=== PATIENT | male | born 1990 | race African-American/Black ===

== ENCOUNTER 2016-12-20 16:03 | Inpatient (IN) | payer OTHER ==
[~2016-12-20] VITALS: Ht 182.9 cm; Wt 142.5 kg
[2016-12-20 16:06] VITALS: BP 132/83; PULSE 103; RESP 20; O2SAT 98
--- NOTE | 2016-12-20 16:18 | ED.REPORT ---
HPI-General Illness Date of Service Dec 20, 2016 ED Provider: Azar Fajardo MD Pt is a 26 y/o previously healthy male presenting to the ED from Urgent Care with concern for new onset diabetes. Pt c/o polydipsia, polyuria, heat intolerance, generalized abdominal pain all for 4-5 days. At Urgent Care, his blood sugar was above their glucometer's upper limit. He describes his abdominal pain as a bloating sensation. He denies fever, chills, N/V/D, constipation, confusion, focal numbness or weakness, CP, SOB. He has no personal or family history of diabetes and he is not taking any medications. He is a former smoker. Nursing Notes Stated Complaint: ABDOMINAL PAIN Chief Complaint: General Complaint Nursing Notes Reviewed: Yes Allergies: Coded Allergies: No Known Allergies (Unverified , 12/20/16) General Time Seen by MD: 16:16 Chief Complaint Other (concern for new onset diabetes) Hx Obtained From: Patient Arrived By: Walk-in Sudden in Onset?: No Onset Occurred: 4 days ago Symptom Duration: Since onset Location: : Abdomen Quality: Fullness Severity: Current: Mild Severity: Maximum: Mild Recent Healthcare: No recent doctor visit, No recent hospitalization Similar Sx Previous: No Past Medical History Past Medical History Denies Past Surgical History Denies Smoking History Former Smoker, Never Smoker Social History Alcohol Use: Denies alcohol use Drug Use: Denies drug use Ambulatory Status Independent Review of Systems Full Review of Systems Constitutional: Denies: Chills, Fever Respiratory: Denies: Non-productive cough, Shortness of breath Cardiovascular: Denies: Chest pain GI: Reports: Abdominal pain, Denies: Diarrhea, Nausea, Vomiting Endocrine: Reports: Heat intolerance, Polydipsia, Polyuria Neurologic: Denies: Focal weakness, Numbness Complete sys rev & neg: except as marked. Physical Exam Vital Signs Vital Signs Date Time Temp Pulse Resp B/P Pulse Ox O2 Delivery O2 Flow Rate FiO2 12/20/16 16:06 36.5 103 20 132/83 98 Room Air Initial VS: Reviewed Head / Eyes: Atraumatic, Normocephalic, PERRL ENT: Mucous membranes moist, Conjunctiva normal, No scleral icterus Neck: Supple, Full range of motion Respiratory: Breath sounds normal, Clear to auscultation, No respiratory distress Cardiovascular: Regular rate & rhythm, Heart sounds normal, Intact distal pulses Abdomen / GI: Soft, Non-tender, No guarding, No rebound, No distention Extremities: Vascular intact, Neuro intact, No swelling, No tenderness Skin: Warm, Dry, No cyanosis Neurologic: Alert, Oriented, Nonfocal Psychiatric: Mood/affect normal, Behavior normal, Normal thought content General/Constitutional: Awake, Alert, No acute distress, Cooperative, Not toxic appearing Interpretation & Diagnostics Lab Results Interpretation Result Diagram: 12/20/16 1550 12/20/16 1550 Test 12/20/16 15:50 12/20/16 16:45 White Blood Count 8.1th/mm3 (3.8-10.1) Red Blood Count 5.82mil/mm3 (4.40-5.80) Hemoglobin 15.2g/dL (13.8-17.2) Hematocrit 42.6% (41.0-50.0) Mean Corpuscular Volume 73.2fL (81-100) Mean Corpuscular Hemoglobin 26.1pg (27.0-35.0) Mean Corpuscular Hemoglobin Concent 35.7% (32.0-37.0) Red Cell Distribution Width 11.8% (12.3-15.4) Platelet Count 369bil/L (150-400) Neutrophils (%) (Auto) 69.3% (40-74) Lymphocytes (%) (Auto) 21.4% (14-46) Monocytes (%) (Auto) 6.9% (4-12) Eosinophils (%) (Auto) 2.2% (0-5) Basophils (%) (Auto) 0.1% (0-3) Urine Osmolality 598mOs/kH2O (250-1200) Sodium Level 136mEq/L (134-144) Potassium Level 5.0mEq/L (3.5-5.2) Chloride Level 92mEq/L (97-108) Carbon Dioxide Level 26mmol/L (18-29) Blood Urea Nitrogen 18mg/dL (6-20) Creatinine 1.06mg/dL (0.76-1.27) Estimat Glomerular Filtration Rate 91mL/min (>59) Glucose Level 718mg/dL (60-99) Osmolality 330 (275-300) Lactic Acid Level 3.4mmol/L (0.4-2.0) Calcium Level 9.8mg/dL (8.5-10.1) Magnesium Level 2.6mg/dL (1.6-2.6) Total Bilirubin 0.9mg/dL (0.0-1.2) Aspartate Amino Transf (AST/SGOT) 12U/L (0-50) Alanine Aminotransferase (ALT/SGPT) 13U/L (0-44) Alkaline Phosphatase 172U/L (25-150) Total Protein 8.0g/dL (6.4-8.4) Albumin 4.9g/dL (3.4-5.0) Lipase 25U/L (13-60) Ketones Negative (Negative) Urine Color Straw (YELLOW) Urine Appearance Clear (CLEAR,HAZY) Urine pH 6.0 (5.0-8.0) Urine Specific [place] 1.010 (1.003-1.035) Urine Protein Negativemg/dL (NEG,TRACE) Urine Glucose (UA) 1000mg/dL (NEGATIVE) Urine Ketones Negativemg/dL (NEGATIVE) Urine Occult Blood Trace (NEGATIVE) Urine Nitrite Negative (NEGATIVE) Urine Bilirubin Negative (NEGATIVE) Urine Urobilinogen Normalmg/dL (NORMAL) Urine Leukocyte Esterase Negative (NEGATIVE) Urine RBC 0-2/hpf (0-2) Urine WBC 0-5/hpf (0-5) Urine Epithelial Cells None/hpf (NONE-MOD) Urine Crystals None seen (NONE SEEN) Urine Bacteria Few/hpf (NONE-FEW) Urine Hyaline Casts None/lpf (NONE) Urine Granular Casts None seen (NONE SEEN) Urine Waxy Casts None seen (NONE SEEN) Urine Red Blood Cell Casts None seen (NONE SEEN) Urine White Blood Cell Casts None seen (NONE SEEN) Urine Mucus None seen (None Seen) Urine Trichomonas None seen (NONE SEEN) Urine Yeast None (NONE SEEN) Urinalysis Comment None Urine Culture Reflexed Not indicated Re-Eval/Medical Decision Time of Eval: 17:08 Re-Evaluation/Progress Note: Pt rechecked. Informed pt of need for admission for educational purposes and normalization of labs. Pt understands and agrees with plan for admission. All questions addressed. Consultation : Consulted With: Hospitalist Call Returned at: 17:30 Starter Mechanic: Will see patient, Agrees with eval, Agrees with plan, Accepts admit Counseled Regarding: Diagnosis, Lab results, Need for admission Discharge & Departure Primary Impression: New onset type 1 diabetes mellitus, uncontrolled Additional Impression: Metabolic acidosis Ruled Out: DKA (diabetic ketoacidosis) Disposition: ADMITTED TO HOSPITAL Discharge Condition All VS Reviewed: Yes Condition: Stable Referrals: NOPCP (PCP) Scribe Attestation Portions of this note were transcribed by Young Lawrence. I, Dr. Fajardo personally performed the history, physical exam and medical decision-making; I reviewed and confirmed the accuracy of the information in the transcribed note. Signed by Karen Braga, 12/20/16 - 1645 Azar Fajardo MD Dec 20, 2016 16:17 YOUNG LAWRENCE Dec 20, 2016 16:22
[2016-12-20] MEDS ORDERED: 0.9% Sodium Chloride 1,000 ML IV ONE ×2 (16:30)
[2016-12-20] MEDS ORDERED: Ondansetron 2 mg/mL 2 mL Inj IVPUSH PRN ×2 (16:30→18:00)
[2016-12-20 16:42] LABS: BASOPHILS % (AUTO) 0.1 % (0-3); EOSINOPHILS % (AUTO) 2.2 % (0-5); MONOCYTES % (AUTO) 6.9 % (4-12); Mean Corpuscular Hemoglobin 26.1 pg (27.0-35.0); Mean Corpuscular Volume 73.2 fL (81-100); NEUTROPHILS % (AUTO) 69.3 % (40-74); Platelet Count 369 bil/L (150-400)
[2016-12-20 16:50] LABS: Lipase 25 U/L (13-60); Magnesium 2.6 mg/dL (1.6-2.6)
[2016-12-20 16:57] LABS: APPEARANCE,URINE CLEAR (CLEAR,HAZY); COLOR,URINE STRAW (YELLOW)
[2016-12-20 16:58] LABS: OCCULT BLOOD,URINE TRACE (NEGATIVE); UROBILINOGEN,URINE NORMAL (NORMAL)
[2016-12-20] MEDS ORDERED: Insulin Human REGular 100 Units/100 mL NS IV SCH ×2 (17:25)
[2016-12-20 17:37] LABS: OSMOLALITY, URINE 598 mOs/kH2O (250-1200)
[2016-12-20 17:59] VITALS: BP 143/85; PULSE 83; RESP 15; O2SAT 98
[2016-12-20] MEDS ORDERED: Alum-Mag Hydrox-Simeth 30 mL Suspension PO PRN (18:00)
[2016-12-20 18:57] VITALS: BP 130/80; PULSE 76; RESP 20; O2SAT 99
[2016-12-20] MEDS ORDERED: Polyethylene Glycol (PEG) 17 Gm Powder PO PRN (19:25)
[2016-12-20] MEDS ORDERED: Insulin Human REGular Inj 100 UNIT in 0.9% Sodium Chloride-Pha MIX 100 ML IV SCH (19:29)
[2016-12-20] MEDS: 0.9% Sodium Chloride 1,000 ML IV SCH (21:22)
--- NOTE | 2016-12-20 22:37 | PCM.HPMED ---
Subjective Date of Service Dec 20, 2016 Primary Provider: Admitting Physician: Adiel Sotelo MD Primary Care Physician: Kosta Madrigal MD Attending Physician: Adiel Sotelo MD Chief Complaint: increased thirst and urination History of Present Illness: Patient is a 26 year old male with no pmh that is presenting with a one week history of increased thirst and increased urination. Patient had been in his usual state of health when he gradually started developing increased thirst. Patient attempted to quench his thirst with everything from yaquelin aid, gingerale , and other soft drinks. Patient continued to have increased thirst despite adjusting his diet to less salty items and with increased fluid intake. Patient then started to urinate uncontrollably. Patient stated that the day prior he was urinating every single hour. Patient became worried that something underlying maybe occuring so he decided to come to the ER. Patient is otherwise stable and has no issues at the moment. Review of Systems: Constitutional: Denies: Chills, Fever Respiratory: Denies: Non-productive cough, Shortness of breath Cardiovascular: Denies: Chest pain GI: Reports: Abdominal pain, Denies: Diarrhea, Nausea, Vomiting Endocrine: Reports: Heat intolerance, Polydipsia, Polyuria Neurologic: Denies: Focal weakness, Numbness complete system reviewed all negative except as stated Allergies Coded Allergies: No Known Allergies (Unverified , 12/20/16) Home Medications none PMH none Surgical History none Family History mother with type II diabetes Social History Hx Alcohol Use: No Hx Substance Use: No Smoking Status: Former Smoker, Never Smoker Exam Vital Signs Vital Sign - Last Date Time Temp Pulse Resp B/P Pulse Ox O2 Delivery O2 Flow Rate FiO2 12/20/16 18:57 36.6 76 20 130/80 99 Room Air Exam General/Constitutional: Awake, Alert, No acute distress, Cooperative, Not toxic appearing Head / Eyes: Atraumatic, Normocephalic, PERRL ENT: Mucous membranes moist, Conjunctiva normal, No scleral icterus Neck: Supple, Full range of motion Respiratory: Breath sounds normal, Clear to auscultation, No respiratory distress Cardiovascular: Regular rate & rhythm, Heart sounds normal, Intact distal pulses Abdomen / GI: Soft, Non-tender, No guarding, No rebound, No distention Extremities: Vascular intact, Neuro intact, No swelling, No tenderness Skin: Warm, Dry, No cyanosis Neurologic: Alert, Oriented, Nonfocal Psychiatric: Mood/affect normal, Behavior normal, Normal thought content Lab and Diagnostics Result Diagram: 12/20/16 1550 12/20/16 1550 Assessment & Plan Patient is a 26 year old male with no significant past medical history that is presenting with a few week history of increased thirst and urination. Patient upon arrival was seen to be hyperglycemic. Newly found Diabetes Mellitus Type II - Pt is seen to have a diagnosis of Diabetes Mellitus type II - Pt not seen to be in DKA however patient is in hyperosmolar hyperglycemic state - will start aggressive IV hydration and start non DKA insulin drip protocol - will monitor blood sugars hourly as per protocol - most recent blood sugar seen to be 283 - will continue with insulin drip and keep pt npo until the am - pt expressed interest in taking po medication - will add on sliding scale coverage for the am GI ppx not warranted DVT ppx via enoxaparin Adiel Sotelo MD Dec 20, 2016 19:42
--- NOTE | 2016-12-20 23:34 | ABG ---
DateTimeAnalyzed 23:30:00 -_ pH ____7.438 - 7.350 7.450 pCO2 ___44.2__ -mmHg 35.0 45.0 pO2 ___75.2__ -mmHg 69.0 116 HCO3- ___29.4__ -mmol/L 22.0 26.0 ABE ____4.9__ -mmol/L -2.0 2.0 tHb ___13.8__ -g/dL O2Hb ___93.9__ -% COHb ____0.8__ -% MetHb ____1.1__ -% sO2 ___95.7__ -% 25.0 FIO2 ___21.0__ -% Drawn By AF - Date/Time Notified____ 23:34:00 -_ Notified By AF - Notified Whom ___Dr. Deepak - B 763 -mmHg tO2 ___18.3__ -Vol% Sonido test _Positive -
[2016-12-21] MEDS: 0.9% Sodium Chloride 1,000 ML IV SCH (04:04)
--- NOTE | 2016-12-21 04:06 | NUR ---
Admit: Pt arrived at around 1900 via WC from ED; family at bedside. Pt AOx3, insulin infusing, RA. Diabetic Teaching done, pt receptive. BG at time of departure from ED 468 per ED RN. Admit complete, denies taking any home medication. Pt pleasant and cooperative with care.
--- NOTE | 2016-12-21 05:31 | NUR ---
BG/NOC Note: Pt on insulin drip, this am within goal range. Pt denied pain, chest pain and SOB. Pt slept off/on throughout the night, significant other at bedside. Pleasant and cooperative with care.
[2016-12-21 05:32] VITALS: BP 110/72; PULSE 73; RESP 20; O2SAT 99
[2016-12-21 06:32] LABS: Mean Corpuscular Hemoglobin 35.3 pg (27.0-35.0)
[2016-12-21 06:33] LABS: BASOPHILS % (AUTO) 1 % (0-3); EOSINOPHILS % (AUTO) 2 % (0-5); MONOCYTES % (AUTO) 9 % (4-12); NEUTROPHILS % (AUTO) 53 % (40-74); Platelet Count 250 bil/L (150-400)
[2016-12-21] MEDS ORDERED: Influenza (Adult) Vaccine 0.5 mL Syringe IM ONE (08:30)
[2016-12-21] MEDS ORDERED: Glucose 40% Oral Gel 15 Gm Tube PO PRN ×2 (08:40→09:20)
[2016-12-21] MEDS ORDERED: Insulin LISPRO 300 Unit/3 mL Inj SUBQ SCH ×2 (12:00)
[2016-12-21 13:59] VITALS: BP 122/70; PULSE 70; RESP 20; O2SAT 100
--- NOTE | 2016-12-21 14:30 | PCM.PNMED ---
Subjective Date of Service Dec 21, 2016 Subjective Patient is doing better this morning. He reports his n/v has improved. He is still a bit tired and sleepy. Upon further questioning, patient reports he just moved to [place] last year from [facility]. He denies any other PMH, but reports his mom does have diabetes. He reports he does smoke Marijuana occasionally, but hasn't lately. He reports he did have URI symptoms a few days prior to this episode also. Exam Vital Signs Vital Sign - Last Date Time Temp Pulse Resp B/P Pulse Ox O2 Delivery O2 Flow Rate FiO2 12/21/16 05:32 36.7 73 20 110/72 99 Room Air Intake and Output 12/20/16 12/20/16 12/21/16 Cumulative From/Thru 15:00 23:00 07:00 12/20/16 16:06 - 12/21/16 06:43 Intake Total 2000 ml 1373 ml 3373 ml Balance 2000 ml 1373 ml 3373 ml Intake IV Total 2000 ml 1373 ml 3373 ml Exam General/Constitutional: Awake, Alert, No acute distress, Cooperative, Not toxic appearing Head / Eyes: Atraumatic, Normocephalic, PERRL ENT: Mucous membranes moist, Conjunctiva normal, No scleral icterus Neck: Supple, Full range of motion Respiratory: CTAB no resp distress. Cardiovascular: Regular rate & rhythm, Heart sounds normal, Intact distal pulses Abdomen / GI: Soft, Non-tender, No guarding, No rebound, No distention Extremities: Vascular intact, Neuro intact, No swelling, No tenderness Skin: Warm, Dry, No cyanosis Neurologic: Alert, Oriented, Nonfocal Psychiatric: Mood/affect normal, Behavior normal, Normal thought content IVs and Medications Medications Reviewed: Medications were reviewed in detail Lab and Diagnostics Result Diagram: 12/21/1652612/21/16526 Assessment & Plan Patient is a 26 year old male with no significant past medical history that is presenting with a few week history of increased thirst and urination. Patient admitted for [facility]. Likely Diabetes Mellitus Type II, POA Patient presented in [facility] 2 Liters of NS fluids were given and patient was continued on 150mls/hr of IV NS. He was started on Non-DKA protocol, which was stopped this morning when his sugars were found to be in the 140s. He is switched over to Insulin Correctional Scale and diet was increased as tolerated; IVF also d/c Will initiate Metformin 500mg BID Diabetic consultation ordered Continue to monitor sugars and neuro status Zofran prn n/v Hypertriglyceridemia As demostrated by Trigs of 474 during hospital stay Will encourage diet and exercise Pain Evaluation: Adequate Pain Control VTE Prophylaxis: Sub-Q Enoxaparin Resuscitation Status: CPR: Attempt Resuscitation Time spent 25 minutes Attending Statement I have seen and evaluated patient at bedside in addition to directly supervising care provided by resident physician. I agree with above documentation. Ganesh Henning DO Dec 21, 2016 06:49 Yannick Castaneda DO Dec 21, 2016 14:54
--- NOTE | 2016-12-21 16:26 | NUR ---
Social Work-screening: Data:EMR Reviewed. Pt is a 26 y/o male who was admitted on 12/20/16 for DKA per H&P. Pt's insurance is [employer] and PCP is Kosta Madrigal MD. EMR Reviewed. Pt resides at home where he remains independent with ADLS. Per RN notes, pt has been up independent in his room. No anticipated discharge needs. SW will continue to follow if needs arise. Assessment:Pt who is independent at baseline. Plan:Pt to discharge home when medically stable via POV. No anticipated discharge needs. SW will continue to follow if needs arise. IHSAN Rodriguez
[2016-12-21] MEDS: Insulin LISPRO 300 Unit/3 mL Inj SUBQ SCH ×2 (17:29→20:55)
[2016-12-21 20:56] VITALS: BP 129/81; PULSE 80; RESP 20; O2SAT 98
[2016-12-22 05:36] VITALS: BP 108/68; PULSE 64; RESP 18; O2SAT 96
[2016-12-22] MEDS ORDERED: Insulin LISPRO 300 Unit/3 mL Inj SUBQ ONE (05:55)
[2016-12-22 06:15] LABS: BASOPHILS % (AUTO) 0.2 % (0-3); EOSINOPHILS % (AUTO) 4.4 % (0-5); MONOCYTES % (AUTO) 8.7 % (4-12); Mean Corpuscular Hemoglobin 26.4 pg (27.0-35.0); Mean Corpuscular Volume 76.9 fL (81-100); NEUTROPHILS % (AUTO) 52.5 % (40-74); Platelet Count 254 bil/L (150-400)
[2016-12-22] MEDS: Insulin LISPRO 300 Unit/3 mL Inj SUBQ SCH (08:42)
[2016-12-22] MEDS ORDERED: METF500T PO (09:45)
[2016-12-22] MEDS ORDERED: INSU100I8 SUBQ (09:45)
--- NOTE | 2016-12-22 09:50 | PCM.DIMED ---
Ganesh Henning DO 12/22/16 0950: Discharge Instructions Date of Service Dec 22, 2016 Dates of Hospitalization Dec 20, 2016 at 17:33 Discharge Diagnosis Discharge Diagnosis New onset Type 2 Diabetes Mellitus Hyperosmolar Hyperglycemia State- Resolved Hypertriglyceridemia Medication Instructions You have been started on Metformin and Short acting Insulin during this hospital stay. Please take the Metformin twice a day with a meal. Please check your sugars 3x a day and give yourself the short acting insulin as instructed according to the correctional scale. Diet Diabetic Activity No restrictions Call your provider Fever or Chills, Vomitting Patient Instructions Please continue measuring your blood sugar before you eat or drink in the morning, then at least 2-3x the rest of the day. Keep a snack on hand if your sugars are low (<80) or you feel like you have low sugars. Please continue a good diet and increasing your exercise as instructed. Follow-up plan Follow up with Dr. Hema Henning at 10:45 am on 12/23/2016. Please bring your sugar log and medications. Follow-up Provider: Ganesh Henning DO Follow-up with PCP in: Other (tomorrow) Yannick Castaneda DO 12/23/16 0725: Discharge Instructions Attending's Statement Read and agree Ganesh Henning DO Dec 22, 2016 09:50 Yannick Castaneda DO Dec 23, 2016 07:25
--- NOTE | 2016-12-22 10:39 | NUR ---
Social Work-discharge: Data:EMR Reviewed. Pt is on day 2 of hospitalization for Non-DKA per H&P. Pt is medically stable to discharge today. MD requesting assistance with getting pt follow up appointment in the next couple days. IDRIS met with pt and discussed options. Pt is agreeable for SW to try his old PCP clinic or [facility].SW called clinic where pt's PCP( who is now retired) worked. Clinic states they would not be able to get pt in. IDRIS called [facility] and left message. IDRIS then updated by MD that he scheduled pt at [facility] for tomorrow at 1045. IDRIS updated pt and provided him with appointment time and information about [facility]. Pt agreeable. Pt up independent in his room. No discharge needs identified. All updated and agreeable to plan. Assessment:pt who is independent at baseline. Plan:Pt to discharge home today via POV. PCP appointment scheduled for tomorrow 2/2 at 1045 at the [facility]. No other discharge needs. All updated and agreeable to plan. IHSAN Rodriguez
--- NOTE | 2016-12-22 11:49 | NUR ---
Discharge Nursing Note: Patient was discharged to home at 1125 . Patients IV was removed intact. All of patients discharge information was reviewed with him and his questions were answered to his satisfaction. Printed Information and diabetic teaching was provided for patient before discharge. Patient was escorted to the Hosp lobby by nursing staff member and he was driven to home by his fiance.
--- NOTE | 2016-12-22 14:06 | PCM.DC.MED ---
Discharge Summary Date of Service Dec 22, 2016 Dates of Hospitalization Date of Hospital Admission Dec 20, 2016 at 17:33 Date of Discharge: Dec 22, 2016 Providers: Admitting Physician: Adiel Sotelo MD Primary Care Physician: Kosta Madrigal MD Attending Physician: Adiel Sotelo MD Diagnosis at Time of Discharge Diagnosis at Time of Discharge New onset Type 2 Diabetes Mellitus Hyperosmolar Hyperglycemia State- Resolved Hypertriglyceridemia Brief History Patient is a 26 year old male with no pmh that is presenting with a one week history of increased thirst and increased urination. Patient had been in his usual state of health when he gradually started developing increased thirst. Patient attempted to quench his thirst with everything from yaquelin aid, gingerale , and other soft drinks. Patient continued to have increased thirst despite adjusting his diet to less salty items and with increased fluid intake. Patient then started to urinate uncontrollably. Patient stated that the day prior he was urinating every single hour. Patient became worried that something underlying maybe occurring so he decided to come to the ER. Patient is otherwise stable and has no issues at the moment. Hospital Course Patient is a 26 year old male with no significant past medical history that is presenting with a few week history of increased thirst and urination. Patient admitted for new on set DM2 and HHS. He was treated aggressively with fluids initially, then started on an Insulin drip until his sugars were normalized overnight. He then was changed over to a correctional scale insulin and his PO diet was increased as tolerated. He was also initiated on Metformin. The following day, he was improved, ate well, and had no complaints. He received Diabetic education including dietary consultation here. He was discharged home with Metformin and short acting Insulin for meal time corrections. He was also established with quick follow up at the [facility]. Exam Vital Signs (Last) Date Time Temp Pulse Resp B/P Pulse Ox O2 Delivery O2 Flow Rate FiO2 12/22/16 05:36 36.5 64 18 108/68 96 Room Air Test 12/20/16 15:50 12/20/16 16:45 12/21/16 05:27 12/21/16 08:10 Urine Osmolality 598mOs/kH2O (250-1200) Hemoglobin A1c 9.0% (4.8-5.6) Osmolality 330 (275-300) Magnesium Level 2.6mg/dL (1.6-2.6) Lipase 25U/L (13-60) Ketones Negative (Negative) Urine Color Straw (YELLOW) Urine Appearance Clear (CLEAR,HAZY) Urine pH 6.0 (5.0-8.0) Urine Specific [place] 1.010 (1.003-1.035) Urine Protein Negativemg/dL (NEG,TRACE) Urine Glucose (UA) 1000mg/dL (NEGATIVE) Urine Ketones Negativemg/dL (NEGATIVE) Urine Occult Blood Trace (NEGATIVE) Urine Nitrite Negative (NEGATIVE) Urine Bilirubin Negative (NEGATIVE) Urine Urobilinogen Normalmg/dL (NORMAL) Urine Leukocyte Esterase Negative (NEGATIVE) Urine RBC 0-2/hpf (0-2) Urine WBC 0-5/hpf (0-5) Urine Epithelial Cells None/hpf (NONE-MOD) Urine Crystals None seen (NONE SEEN) Urine Bacteria Few/hpf (NONE-FEW) Urine Hyaline Casts None/lpf (NONE) Urine Granular Casts None seen (NONE SEEN) Urine Waxy Casts None seen (NONE SEEN) Urine Red Blood Cell Casts None seen (NONE SEEN) Urine White Blood Cell Casts None seen (NONE SEEN) Urine Mucus None seen (None Seen) Urine Trichomonas None seen (NONE SEEN) Urine Yeast None (NONE SEEN) Urinalysis Comment None Urine Culture Reflexed Not indicated Band Neutrophils % 2% (1-5) Metamyelocytes % 3% (0-0) Hematology Comments Total Bilirubin 1.0mg/dL (0.0-1.2) Aspartate Amino Transf (AST/SGOT) 25U/L (0-50) Alanine Aminotransferase (ALT/SGPT) 9U/L (0-44) Alkaline Phosphatase 139U/L (25-150) Total Protein 6.9g/dL (6.4-8.4) Albumin 4.0g/dL (3.4-5.0) Triglycerides Level 474mg/dL (0-149) Cholesterol Level 180mg/dL (100-199) LDL Cholesterol, Calculated 53.200mg/dL (0-119) VLDL Cholesterol 94.800mg/dL HDL Cholesterol 32mg/dL (>39) Cholesterol/HDL Ratio 5.63 (0.0-4.4) Lactic Acid Level 1.1mmol/L (0.4-2.0) Test 12/22/16 05:43 White Blood Count 4.7th/mm3 (3.8-10.1) Red Blood Count 4.85mil/mm3 (4.40-5.80) Hemoglobin 12.8g/dL (13.8-17.2) Hematocrit 37.3% (41.0-50.0) Mean Corpuscular Volume 76.9fL (81-100) Mean Corpuscular Hemoglobin 26.4pg (27.0-35.0) Mean Corpuscular Hemoglobin Concent 34.3% (32.0-37.0) Red Cell Distribution Width 11.6% (12.3-15.4) Platelet Count 254bil/L (150-400) Neutrophils (%) (Auto) 52.5% (40-74) Lymphocytes (%) (Auto) 34.2% (14-46) Monocytes (%) (Auto) 8.7% (4-12) Eosinophils (%) (Auto) 4.4% (0-5) Basophils (%) (Auto) 0.2% (0-3) Sodium Level 140mEq/L (134-144) Potassium Level 4.3mEq/L (3.5-5.2) Chloride Level 101mEq/L (97-108) Carbon Dioxide Level 28mmol/L (18-29) Blood Urea Nitrogen 12mg/dL (6-20) Creatinine 0.85mg/dL (0.76-1.27) Estimat Glomerular Filtration Rate 118mL/min (>59) Glucose Level 317mg/dL (60-99) Calcium Level 9.3mg/dL (8.5-10.1) Discharge Medications Discharge Medications Insulin Glulisine (Apidra U100 Insulin Solostar Pen) 100 Unit/1 Ml Insuln.pen 2 UNIT SUBQ DIRECTED Insulin Correctional Scale: If sugars 150-200, inject 2 units If sugars 200- 250, inject 4 units If sugars 250-300, inject 6 units if sugars 300-350, inject 8 units if sugars >350, inject 10 units and notify doctor Prescribed by: GILL HENNING, DO Metformin (Glucophage) 500 Mg Tablet 850 MG PO BIDWM Prescribed by: GILL HENNING, DO Additional med instructions You have been started on Metformin and Short acting Insulin during this hospital stay. Please take the Metformin twice a day with a meal. Please check your sugars 3x a day and give yourself the short acting insulin as instructed according to the correctional scale. Followup Plan Follow-up plan Follow up with Dr. Hema Henning at 10:45 am on 12/23/2016. Please bring your sugar log and medications. Discharge Diet: Diabetic Discharge Activity: No restrictions Patient Instructions Please continue measuring your blood sugar before you eat or drink in the morning, then at least 2-3x the rest of the day. Keep a snack on hand if your sugars are low (<80) or you feel like you have low sugars. Please continue a good diet and increasing your exercise as instructed. Follow-up Provider: Ganesh Henning DO Follow-up with PCP in: Other (tomorrow) Time spent 40 minutes Attending Statement I have seen and evaluated patient at bedside, in addition to directly supervising care provided by resident physician. I agree with above documentation. copies to: Ganesh Henning DO Ganesh Henning DO Dec 22, 2016 14:06 Yannick Castaneda DO Dec 23, 2016 07:41
--- NOTE | 2016-12-24 12:50 | NUR ---
follow-up DM call pt denies questions or concerns r/t dm edu or discharge instructions followed up with Dr Henning 2/2 states he has been checking BGs and compliant with medications denies further needs at this time has referral to outpt dm edu
== END 2016-12-22 11:24 | disposition home or self-care (01) | DRG 420 ==
LOC: SED 16:03 → MPC 17:33
PROVIDERS: ADMIT Internal Medicine; ATTEND Internal Medicine
PROC: 4A033B1 Measurement of Arterial Pressure, Peripheral, Percutaneous Approach (ICD-10-PCS; principal; 2016-12-20)
DX: E13.10 Other specified diabetes mellitus with ketoacidosis without coma (principal); Z87.891 Personal history of nicotine dependence; E78.1 Pure hyperglyceridemia; Z79.84 Long term (current) use of oral hypoglycemic drugs